=== PATIENT | female | born 1950 | race Caucasian/White ===

== ENCOUNTER 2018-06-25 20:19 | Emergency (ER) | payer MEDICARE ==
[~2018-06-25] VITALS: Ht 156.2 cm; Wt 68.0 kg
--- NOTE | 2018-06-25 21:36 | ED Cough/URI ---
General Chief Complaint: Respiratory Problems Stated Complaint: CONGESTED, SOB, THROAT CLOSING Sepsis Screen: No Definite Risk Source: patient, family History of Present Illness Date Seen by Provider: Jun 25, 2018 Time Seen by Provider: 21:08 Initial Comments 68-year-old female presenting with complaints of cough and sinus drainage for the last several days. She has a feeling that her throat is getting full with congestion and tight. She has been unable to sleep well the last 2 nights because of the sensation of her throat getting tight and swollen. Tonight it was to the point that she felt like she needed to have it evaluated so she came to the emergency department. She has felt like she was running a low-grade fever. She does have a history of recurrent bronchitis as well as recurrent sinus infection. She states that she usually has issues with this anytime there is a change in the season. She denies having any productive cough but has had some drainage from her nose. Allergies and Home Medications Allergies Coded Allergies: No Known Drug Allergies (Unverified , 06/25/18) Home Medications Azithromycin 250 Mg Tablet, 500 MG PO DAILY Prescribed by: DUANE IBRAHIM on 06/25/182221 Prednisone 20 Mg Tab, 40 MG PO DAILY Prescribed by: DUANE IBRAHIM on 06/25/182221 Patient Home Medication List Home Medication List Reviewed: Yes Review of Systems Review of Systems Constitutional: see HPI, fever (subjective), malaise EENTM: nose congestion, throat swelling (sensation), other (sinus pain and pressure with drainage); No epistaxis Respiratory: cough; No hemoptysis, No phlegm; short of breath; No stridor Cardiovascular: No chest pain Gastrointestinal: No nausea, No vomiting Genitourinary: no symptoms reported Musculoskeletal: no symptoms reported Skin: no symptoms reported Psychiatric/Neurological: Anxiety (due to feeling like her throat is swelling) Past Cxsstax-Rbddcn-Snikzz Hx Past Med/Social Hx: Reviewed Nursing Past Med/Soc Hx Patient Social History Recent Foreign Travel: No Contact w/Someone Who Travel: No Recent Infectious Disease Expo: No Past Medical History Chronic Bronchitis Physical Exam Vital Signs - First Documented 06/25/18 20:26 Temp 97.8 Pulse 94 Resp 16 B/P (MAP) 194/92 (126) Pulse Ox 99 O2 Delivery Room Air Capillary Refill : Less Than 3 Seconds Height: 5'1.50" Weight: 150lbs. oz. [id number]; BMI Method:Stated General Appearance: WD/WN, no apparent distress HEENT: PERRL/EOMI, TMs normal (clear TM bilateral with small amount of fluid behind each TM. No erythema), pharynx normal; No tonsillar exudate; other ( tender to palpation over frontal and maxillary sinuses) Neck: full range of motion, supple, lymphadenopathy (R), lymphadenopathy (L) Respiratory: chest non-tender, lungs clear, normal breath sounds, no respiratory distress, no accessory muscle use Cardiovascular: normal peripheral pulses, regular rate, rhythm Gastrointestinal: normal bowel sounds, non tender, soft Extremities: normal range of motion, non-tender, normal inspection Neurologic/Psychiatric: street light wirer II-XII nml as tested, no motor/sensory deficits, alert Skin: normal color, warm/dry Progress/Results/Core Measures Suspected Sepsis Recent Fever Within 48 Hours: No Infection Criteria Present: None New/Unexplained Altered Menta: No Sepsis Screen: No Definite Risk SIRS Temperature:97.8 Pulse: 94 Respiratory Rate: 16 Blood Pressure 194 /92 Mean: 126 Results/Orders My Orders Orders - DUANE IBRAHIM MD Dexamethasone Injection (Decadron Inject (06/25/18 21:45) Methylprednisolone Acetate Inj (Depo-Med (06/25/18 21:45) Azithromycin Tablet (Zithromax Tablet) (06/25/18 21:45) Medications Given in ED Current Medications Medications Dose Ordered Sig/Norberto Route Start Time Stop Time Status Last Admin Dose Admin Azithromycin 500 mg ONCE ONCE PO 06/25/18 21:45 06/25/18 21:46 DC 06/25/18 22:04 500 MG Dexamethasone Sodium Phosphate 10 mg ONCE ONCE IM 06/25/18 21:45 06/25/18 21:46 DC 06/25/18 22:03 10 MG Methylprednisolone Acetate 80 mg ONCE ONCE IM 06/25/18 21:45 06/25/18 21:46 DC 06/25/18 22:04 80 MG Vital Signs/I&O 06/25/18 06/25/18 20:26 22:26 Temp 97.8 98.6 Pulse 94 75 Resp 16 16 B/P (MAP) 194/92 (126) 148/78 (101) Pulse Ox 99 99 O2 Delivery Room Air Room Air Capillary Refill : Less Than 3 Seconds Blood Pressure Mean: 126 Progress Note : Progress Note with her having no stridor and lungs clear will treat with steroid shot to help with congestion and sinus pressure. start on zithromax as well to cover for recurrent sinusitis and bronchitis as well. counseled on follow up and return precautions. Departure Impression Primary Impression: Upper respiratory infection with cough and congestion Additional Impressions: Chronic maxillary sinusitis Sensation of swollen throat Disposition: 01 HOME, SELF-CARE Condition: Stable Departure-Patient Inst. Decision time for Depature: 22:17 Referrals: DAVID NEWTON DO (PCP) Primary Care Physician Patient Instructions: Acute Bronchitis, Adult (DC), Chronic Sinusitis Add. Discharge Instructions: Follow up with Dr. Newton if having continued problems. Continue with steroids and antibiotics to help treat for bronchitis and sinus infection. Stay well hydrated and use Mucinex to help loosen congestion and cough. Take all the antibiotics until gone. All discharge instructions reviewed with patient and/or family. Voiced understanding. Scripts Prednisone (Prednisone) 20 Mg Tab 40 MG PO DAILY for 5 Days, #10 TAB 0 Refills Prov: DUANE IBRAHIM MD 06/25/18 Azithromycin (Azithromycin) 250 Mg Tablet 500 MG PO DAILY for sinusitis for 5 Days, #10 TAB 0 Refills Prov: DUANE IBRAHIM MD 06/25/18 DUANE IBRAHIM MD Jun 25, 2018 21:36
[2018-06-25] MEDS ORDERED: AZITHROMYCIN 250 MG TAB (ZITHROMAX) PO ONE (21:45)
[2018-06-25] MEDS ORDERED: methylPREDNISolone 80 MG/ML (DEPO MEDROL) VIAL IM ONE (21:45)
[2018-06-25] MEDS ORDERED: DEXAMETHASONE 4 MG/ML SDV (DECADRON) IM ONE (21:45)
[2018-06-25] MEDS ORDERED: AZIT250T12 PO (22:22)
[2018-06-25] MEDS ORDERED: PRD20T PO (22:22)
[2018-06-25 22:26] VITALS: BP 148/78
== END 2018-06-25 22:26 | disposition home or self-care (01) ==
LOC: ER FS 20:21
DX: J06.9 Acute upper respiratory infection, unspecified (principal); J32.0 Chronic maxillary sinusitis; R22.1 Localized swelling, mass and lump, neck
CPT/HCPCS: 99284

== ENCOUNTER → 2020-12-05 | Outpatient (CLI) | payer MEDICARE ==
[~2020-12-05] MED LIST: AZIT250T12 PO; PRD20T PO
[2020-12-05 11:37] LABS: CHLORIDE 104 MMOL/L (98-107); POTASSIUM 4.2 MMOL/L (3.6-5.0); SODIUM 141 MMOL/L (135-145)
[2020-12-05 11:38] LABS: ALANINE AMINOTRANSFERASE 21 U/L (0-55); ALBUMIN 4.4 GM/DL (3.2-4.5); ALKALINE PHOSPHATASE 83 U/L (40-136); BILIRUBIN,TOTAL 0.4 MG/DL (0.1-1.0); BUN/CREATININE RATIO 27; CALCIUM 9.4 MG/DL (8.5-10.1); CARBON DIOXIDE 26 MMOL/L (21-32); CREATININE SERUM 0.74 MG/DL (0.60-1.30); GFR ESTIMATED 78; GLUCOSE 106 MG/DL (70-105); TOTAL PROTEIN 7.4 GM/DL (6.4-8.2)
[2020-12-05 11:56] LABS: BASOPHILS % (AUTO) 0 % (0-10); EOSINOPHILS % (AUTO) 0 % (0-10); HEMATOCRIT 44 % (35-52); HEMOGLOBIN 14.1 g/dL (11.5-16.0); LYMPHOCYTES # (AUTO) 2.4 X 10^3 (1.0-4.0); LYMPHOCYTES % (AUTO) 22 % (12-44); MEAN CORPUSCULAR HEMOGLOBIN 29 pg (25-34); MEAN CORPUSCULAR HGB CONC 32 g/dL (32-36); MEAN CORPUSCULAR VOLUME 92 fL (80-99); MEAN PLATELET VOLUME 9.9 fL (9.0-12.2); MONOCYTES # (AUTO) 0.7 X 10^3 (0.0-1.0); MONOCYTES % (AUTO) 6 % (0-12); NEUTROPHILS # (AUTO) 7.6 X 10^3 (1.8-7.8); NEUTROPHILS % (AUTO) 71 % (42-75); PLATELET COUNT 283 10^3/uL (130-400); WHITE BLOOD COUNT 10.7 10^3/uL (4.3-11.0)
[2020-12-05 11:57] LABS: BAND NEUTROPHILS 7 %; ERYTHROCYTE SEDIMENTATION RATE 6 MM/HR (0-30); LYMPHOCYTES % (MANUAL) 22 %; MONOCYTES % (MANUAL) 5 %; NEUTROPHILS % (MANUAL) 66 %; RBC MORPH NORMAL
[2020-12-05 15:55] LABS: FREE T4 (FREE THYROXINE) 1.53 NG/DL (0.70-1.48)
== END ==
LOC: LAB FS 09:28
PROVIDERS: ATTEND Nurse Practitioner Family
DX: Z13.220 Encounter for screening for lipoid disorders (principal); L98.2 Febrile neutrophilic dermatosis [Sweet]; I10 Essential (primary) hypertension; E05.90 Thyrotoxicosis, unspecified without thyrotoxic crisis or storm; R21 Rash and other nonspecific skin eruption
CPT/HCPCS: 80053; 80061; 84439; 84443; 85007; 85027; 85652; 86141

== ENCOUNTER → 2022-11-19 | Outpatient (CLI) | payer MEDICARE ==
--- NOTE | 2022-11-19 20:00 | Diagnostic Imaging Report ---
INDICATION: Thyroiditis. Right thyroid lobe is 4.2 x 1.7 x 2.2 cm. There is a solid but echogenic well-defined mass in the lower pole of the right lobe 2.2 cm maximal. The left thyroid lobe is 3.7 x 1.7 x 1.2 cm and was nonfocal. No abnormal color Doppler blood flow. IMPRESSION: Solid 2.2 cm TI-RADS 3 echogenic right lobe mass. Based on criteria and size follow-up exam in 1, 3 and 5 years from today recommended. Dictated by: Dictated on workstation # [id number]
== END ==
LOC: RAD FS 10:33
PROVIDERS: ATTEND Emergency Medicine
DX: E06.0 Acute thyroiditis (principal); E07.9 Disorder of thyroid, unspecified
CPT/HCPCS: 76536